=== PATIENT | female | born 1975 | race Caucasian/White ===

== ENCOUNTER → 2018-06-06 | Emergency (ER) | payer OTHER ==
[~2018-06-06] VITALS: Ht 165.1 cm; Wt 56.7 kg
== END | disposition left against medical advice (07) ==
LOC: ER 14:02
DX: Z53.20 Procedure and treatment not carried out because of patient's decision for unspecified reasons (principal)

== ENCOUNTER 2018-12-24 12:12 | Emergency (ER) | payer OTHER ==
[~2018-12-24] VITALS: Ht 165.1 cm; Wt 56.7 kg
== END 2018-12-24 14:51 | disposition home or self-care (01) ==
LOC: ER 12:12
DX: F06.4 Anxiety disorder due to known physiological condition (principal); F43.9 Reaction to severe stress, unspecified

== ENCOUNTER 2019-02-20 13:55 | Emergency (ER) | payer OTHER ==
[~2019-02-20] VITALS: Ht 165.1 cm; Wt 55.8 kg
== END 2019-02-20 17:32 | disposition home or self-care (01) ==
LOC: ER 13:55
DX: B34.9 Viral infection, unspecified (principal); J11.1 Influenza due to unidentified influenza virus with other respiratory manifestations

== ENCOUNTER 2019-03-14 16:17 | Emergency (ER) | payer OTHER ==
[~2019-03-14] VITALS: Ht 165.1 cm; Wt 56.7 kg
== END 2019-03-14 21:50 | disposition home or self-care (01) ==
LOC: ER 16:17
DX: R53.1 Weakness (principal); F41.8 Other specified anxiety disorders

== ENCOUNTER 2023-01-17 20:47 | Emergency (ER) | payer OTHER ==
[~2023-01-17] VITALS: Ht 165.1 cm; Wt 59.0 kg
== END 2023-01-18 01:20 | disposition home or self-care (01) ==
LOC: ER 20:47
DX: R10.9 Unspecified abdominal pain (principal); R50.9 Fever, unspecified; R11.10 Vomiting, unspecified; Z20.822 Contact with and (suspected) exposure to COVID-19
CPT/HCPCS: 36415; 74177; Q9965